=== PATIENT | male | born 1950 | race Caucasian/White ===

== ENCOUNTER 2020-07-20 12:24 | Day surgery (SDC) | payer BC, MEDICARE ==
[2020-07-18 13:07] VITALS: BMI 27.6
[~2020-07-20 12:24] MED LIST: ALBUTEROL NEB (CONC) 2.5 MG/0.5 ML INHALATION ONE; ATROPINE SULFATE 0.4 MG/ML 1 ML VIAL IM ONE; LIDOCAINE 1% (10MG/ML) FOR IV START INTRADERMA PRN; LIDOCAINE 2% (PF) 20 MG/ML 5 ML VIAL INHALATION ONE; LIDOCAINE VISCOUS 300 MG/15 ML CUP MUCOUS MEM ONE; SODIUM CHLORIDE 0.9% 1,000 ML IV SCH
[2020-07-20] MEDS: LACTATED RINGERS 1,000 ML IV SCH ×3 (12:48→13:24)
[2020-07-20 12:55] VITALS: RESP 16; TEMP 97
[2020-07-20] MEDS ORDERED: KETAMINE 10 MG/ML 20 ML VIAL ONE (13:27)
[2020-07-20] MEDS ORDERED: MIDAZOLAM 2 MG/2 ML VIAL ONE (13:27)
[2020-07-20] MEDS ORDERED: LIDOCAINE 1% INJ 10MG/ML (20 ML MDV) ONE (13:27)
[2020-07-20] MEDS ORDERED: PROPOFOL 10 MG/ML 20 ML VIAL IV ONE (13:27)
[2020-07-20] MEDS ORDERED: LIDOCAINE 2% INJ 20 MG/ML INTRATRACH ONE (13:32)
[2020-07-20 14:14] VITALS: BP 147/91; PULSE 88
--- NOTE | 2020-07-20 16:13 | PCN ---
PROCEDURE NOTE PULMONARY/CRITICAL CARE PROCEDURE NOTE: OPERATORS: Dr. Baez and Dr. Jackson. PROCEDURE: Bronchoscopy, airway examination, therapeutic lavage, BAL. PREOPERATIVE DIAGNOSIS: Chronic cough. POSTOPERATIVE DIAGNOSIS: Chronic cough. ANESTHESIA: Anesthesia provided general anesthesia. DESCRIPTION OF PROCEDURE: After the patient was adequately sedated and being fully monitored, and course after informed consent and universal time-out, the bronchoscope was inserted through the right nostril. It passed through the right nasopharynx into the oropharynx. The hypopharynx was identified and topicalized. The hypopharyngeal structures including anterior commissure, true cords, false cords, arytenoids, piriform sinuses, right and left valleculae and epiglottis all appeared relatively normal. The glottic opening was topicalized. The bronchoscope was taken through the glottic opening into the trachea. The trachea appeared relatively normal. Tracheal lisa was sharp. Next the right and left mainstem were topicalized. Right upper lobe and its 3 segments, right middle lobe and its 2 segments, right lower lobe and its 5 segments, left upper lobe proper and its 2 segments, lingula and its 2 segments and left lower lobe and its 4 segments all had similar findings of mild to moderate diffuse airway erythema and hyperemia. There was some engorgement of the vasculature. Of note was the fact that there were significant anthracosis throughout both lungs. It was quite significant. There was no endobronchial tumor or mass. There was no bleeding. The bronchoscope was wedged into the right middle lobe. BAL took place. Thirty mL was recovered. The bronchoscope was withdrawn. There was no immediate complications and the patient will be recovered. MMODL / IJN: [id number] /
[2020-07-20 16:16] LABS: Color,BF Colorless
[2020-07-20 16:17] LABS: Appearance,BF Hazy; Nucleated Cells, Body Fluid 0 /uL; RBC, Body Fluid 78 /uL
== END 2020-07-20 14:25 | disposition home or self-care (01) ==
LOC: ORWHC2ENDO 12:24
PROVIDERS: ATTEND Internal Medicine Critical Care Medicine
DX: R05 Cough (principal); E78.00 Pure hypercholesterolemia, unspecified; G47.33 Obstructive sleep apnea (adult) (pediatric); I25.10 Atherosclerotic heart disease of native coronary artery without angina pectoris; K21.9 Gastro-esophageal reflux disease without esophagitis; Z79.82 Long term (current) use of aspirin; Z79.899 Other long term (current) drug therapy; Z86.16 Personal history of COVID-19
CPT/HCPCS: 87798 ×3; 87496; 87498; 87529; 88108; 88305; 89050; 87252; 87502; 87634; 87070; 87205; 87116; 87102; 87206; 31624; J2001 ×2; J2250; J0461; J2704

== ENCOUNTER → 2021-05-25 | Outpatient (CLI) | payer MEDICARE, OTHER ==
[~2021-05-25] MED LIST changes: -ALBUTEROL NEB (CONC) 2.5 MG/0.5 ML INHALATION ONE; -ATROPINE SULFATE 0.4 MG/ML 1 ML VIAL IM ONE; -LIDOCAINE 1% (10MG/ML) FOR IV START INTRADERMA PRN; -LIDOCAINE 2% (PF) 20 MG/ML 5 ML VIAL INHALATION ONE; -LIDOCAINE VISCOUS 300 MG/15 ML CUP MUCOUS MEM ONE; -SODIUM CHLORIDE 0.9% 1,000 ML IV SCH; +SODIUM CHLORIDE 0.9% 50 ML IVPB ONE; +SODIUM CHLORIDE 0.9% 500 ML 500 ML in EMPTY BAG 1 BAG IV PRN; +SOTROVIMAB (EUA) 500 MG in SODIUM CHLORIDE 0.9% 100 ML IVPB ONE
== END ==
LOC: PROCWHC3 07:25
PROVIDERS: ATTEND Internal Medicine
DX: U07.1 COVID-19 (principal)
CPT/HCPCS: 96360; M0247